=== PATIENT | male | born 1970 | race Caucasian/White ===

== ENCOUNTER → 2019-05-04 | Outpatient (CLI) | payer OTHER ==
--- NOTE | 2019-05-05 09:12 | US ---
EXAM DESCRIPTION: Soft Tissue,Extremity: ULTRASOUND. CLINICAL HISTORY: 48 years Male SOFT TISSUE MASS. Left popliteal region. COMPARISON: None Available. TECHNIQUE: Transcutaneous scanning: Estrada-scale and Doppler modes. FINDINGS: A slightly irregular and lobular margin fluid mass is visible in the left popliteal fossa. Dimensions are approximately 4.0 x 3.8 x 2.3 cm. Nonvascular contents or capsule. Consistent with a Garcia's cyst. IMPRESSION: 4 cm Garcia's cyst in the left popliteal fossa. Electronically signed by: Aroldo Ness MD 05/05/2019 9:10 AM CDT
== END ==
LOC: US 09:33
PROVIDERS: ATTEND Nurse Practitioner Family
DX: M71.22 Synovial cyst of popliteal space [Baker], left knee (principal)